=== PATIENT | female | born 1985 | race Hispanic/Latino ===

== ENCOUNTER 2024-02-03 04:11 | Emergency (ER) | payer SELFPAY ==
[~2024-02-03] VITALS: Ht 165.1 cm; Wt 57.0 kg
[~2024-02-03 04:11] MED LIST: NO HOME MEDS PER PT; ULTRAM50 M1 OR
[2024-02-03] MEDS ORDERED: SODIUM CHLORIDE 0.9% 1,000 ML IV ONE (04:55)
[2024-02-03] MEDS ORDERED: ONDANSETRON HCl 4 MG/2 ML SDV IV ONE (04:55)
[2024-02-03 05:12] LABS: BASO% 0.2 % (0-3); EOS% 0.4 % (0-8); HEMATOCRIT 43.6 % (37.0-47.0); HEMOGLOBIN 15.1 g/dl (12.0-16.0); IMMATURE GRANULOCYTES 1.1 % (0.0-5.0); LYMPH% 2.4 % (15-41); MEAN CORPUSCULAR HGB 32.5 pG CALC (26.0-32.0); MEAN CORPUSCULAR HGB CONC 34.6 g/dL CAL (32.0-36.0); MONO% 3.2 % (2-13); NEUT# 11.41 thou/uL (2.00-7.15); NEUT% 92.7 % (42-76); RED BLOOD COUNT 4.64 mill/uL (4.20-5.60); RED CELL DISTRI WIDTH 12.7 % (11.5-15.5)
[2024-02-03 05:14] LABS: URINE BLOOD DIPSTICK Trace-intact (NEGATIVE); URINE GLUCOSE - DIPSTICK Negative (NEGATIVE); URINE KETONE >=160 mg/dL (NEGATIVE); URINE LEUK ESTERASE Negative (NEGATIVE); URINE NITRITE - DIPSTICK Negative (Negative); URINE PH 6.5 (4.5-8.0); URINE PROTEIN - DIPSTICK 30 mg/dL (NEG-TRACE); URINE SPECIFIC GRAVITY 1.025
[2024-02-03 05:16] LABS: URINE COLOR Yellow
[2024-02-03 05:21] LABS: URINE MUCUS MANY hpf (NONE-FEW); URINE SQUAMOUS EPITHELIAL CELL MANY EPI/hpf (0-FEW); URINE WBC 0-2 WBC/hpf (0-5)
[2024-02-03 05:26] LABS: ALBUMIN 4.5 g/dL (3.2-5.0); BILIRUBIN, TOTAL 1.1 mg/dL (0.02-1.3); CREATININE 0.6 mg/dL (0.5-1.0); POTASSIUM 3.8 mmol/l (3.5-5.1); TOTAL PROTEIN 7.6 g/dL (6.3-8.2)
[2024-02-03] MEDS ORDERED: ONDANSETRON4 MG PO (05:32)
[2024-02-03] MEDS ORDERED: DICYCLOMINE HCL 10 MG/CAP PO ONE (05:35)
[2024-02-03 05:50] VITALS: BP 90/56
== END 2024-02-03 06:02 | disposition home or self-care (01) | DRG 392 ==
LOC: ED 04:11
PROVIDERS: Family Medicine
DX: K52.9 Noninfective gastroenteritis and colitis, unspecified (principal)
CPT/HCPCS: J2405